=== PATIENT | female | born 1975 | race Caucasian/White ===

== ENCOUNTER 2018-04-15 13:37 | Emergency (ER) | payer SELFPAY ==
[~2018-04-15] VITALS: Ht 152.4 cm; Wt 59.0 kg
[2018-04-15] MEDS ORDERED: KETOROLAC 30 MG/1 ML IM ONE (14:00)
[2018-04-15] MEDS ORDERED: OXYcodone/APAP 5/325MG TABLET PO ONE (14:00)
[2018-04-15] MEDS ORDERED: DIAZEPAM 5 MG/ML, 2ML IM ONE (14:00)
[2018-04-15] MEDS ORDERED: KETOROLAC 30 MG/1 ML ONE (14:14)
[2018-04-15] MEDS ORDERED: DIAZEPAM 5 MG TABLET ONE (14:14)
[2018-04-15] MEDS ORDERED: OXYcodone/APAP 5/325MG TABLET ONE (14:14)
[2018-04-15] MEDS ORDERED: DIAZEPAM 5 MG TABLET PO ONE (14:30)
[2018-04-15] MEDS ORDERED: HYDROmorphone 2 MG/ML, 1ML ONE (15:54)
[2018-04-15] MEDS ORDERED: HYDROmorphone 2 MG/ML, 1ML IM ONE (16:00)
[2018-04-15 16:45] VITALS: BP 111/69
== END 2018-04-15 16:47 | disposition home or self-care (01) ==
LOC: ED 16:35
DX: S39.012A Strain of muscle, fascia and tendon of lower back, initial encounter (principal); M51.36 Other intervertebral disc degeneration, lumbar region; X58.XXXA Exposure to other specified factors, initial encounter; Y93.89 Activity, other specified; Y92.89 Other specified places as the place of occurrence of the external cause; Y99.8 Other external cause status
CPT/HCPCS: 72110; 96372; 99284; J1170; J7512